=== PATIENT | male | born 1995 | race Caucasian/White ===

== ENCOUNTER 2021-09-27 18:34 | Emergency (ER) | payer SELFPAY ==
[2021-09-27 18:47] VITALS: BP 144/86; PULSE 114; O2SAT 96
[2021-09-27 18:56] VITALS: BP 124/76; PULSE 97; RESP 16; TEMP 36.6; O2SAT 96; BMI 23.5
--- NOTE | 2021-09-27 18:59 | ED_ITS ---
HPI - General Adult General Chief complaint: ETOH/Substance Use <HEATHER Mcpherson - Last Filed: 09/27/21 20:50> Stated complaint: N/V x 30 min S/P marijuana <HEATHER Mcpherson - Last Filed: 09/27/21 20:50> Time Seen by Provider: 09/27/21 18:53 <HEATHER Mcpherson - Last Filed: 09/27/21 20:50> Source: patient and EMS <HEATHER Mcpherson - Last Filed: 09/27/21 20:50> Mode of arrival: EMS <HEATHER Mcpherson - Last Filed: 09/27/21 20:50> Limitations: no limitations <HEATHER Mcpherson - Last Filed: 09/27/21 20:50> History of Present Illness HPI narrative: This is a 26-year-old male presenting to the emergency department via ambulance with nausea and vomiting status post smoking marijuana just prior to his arrival. Upon his arrival he is covered in vomit, and tells me it is because he smoked marijuana. Denies any pain at this time any medical complaints tells me he is still nauseous. He tells me he does not smoke daily however he decided to smoke today. He denies at doubles. Denies any other drugs, and tobacco. Denies visual, auditory and tactile hallucinations. Denies SI and HI. <HEATHER Mcpherson - Last Filed: 09/27/21 20:50> Onset (ago): hour(s) (1) <HEATHER Mcpherson - Last Filed: 09/27/21 20:50> Relieving factors: none <HEATHER Mcpherson - Last Filed: 09/27/21 20:50> Exacerbating factors: none <HEATHER Mcpherson - Last Filed: 09/27/21 20:50> Associated symptoms: nausea/vomiting <HEATHER Mcpherson - Last Filed: 09/27/21 20:50> Treatments prior to arrival: none <HEATHER Mcpherson Last Filed: 09/27/21 20:50> Related Data Home medications: Previous Rx's Medication Instructions Recorded ondansetron 4 mg disintegrating 4 mg PO ONCE PRN #10 tab 09/27/21 tablet <HEATHER Mcpherson - Last Filed: 09/27/21 20:50> Allergies/adverse reactions: Allergies Allergy/AdvReac Type Severity Reaction Status Date / Time Penicillins Allergy Unknown Verified 09/27/21 19:09 <HEATHER Mcpherson Last Filed: 09/27/21 20:50> Review of Systems 2 Review of Systems: Constitutional : No Fever, No Chills ENT/Mouth : No sore throat, No Rhinorrhea Eyes: No Eye Pain, No Swelling, No Redness Cardiovascular : No Chest Pain, No SOB Respiratory : No Cough, No Sputum Gastrointestinal : + Nausea, + Vomiting, No Diarrhea, No abdominal Pain Genitourinary : No Dysuria, No Hematuria Musculoskeletal : No joint pain, No Myalgias, No Joint Swelling Skin : No Skin Lesions, No rash Neuro : No Weakness, No Numbness Psych : No Anxiety, No Depression, No SI/HI/AH/VH Heme/Lymph: No Bruising, No Bleeding Endocrine : No Polyuria, No Polydipsia All other systems reviewed and are negative <HEATHER Mcpherson - Last Filed: 09/27/21 20:50> Yes all other systems are reviewed and are negative <HEATHER Mcpherson - Last Filed: 09/27/21 20:50> [facility] Past Medical History Attestation statement: The following information was validated with the patient. <HEATHER Mcpherson - Last Filed: 09/27/21 20:50> Source: old records reviewed and nursing notes reviewed <HEATHER Mcpherson - Last Filed: 09/27/21 20:50> Social History Social History: Social History Advance Directives: No <HEATHER Mcpherson Last Filed: 09/27/21 20:50> Physical Exam ED Vital Signs: Vital Signs - 24 hr 09/27/21 18:56 09/27/21 19:42 09/27/21 22:00 Temperature 98 F Pulse Rate 97 87 80 Respiratory Rate 16 16 Blood Pressure 124/76 131/73 121/74 Pulse Oximetry 96 96 98 BMI result Body Mass Index 23.5 VSS <HEATHER Mcpherson - Last Filed: 09/27/21 20:50> Vital Signs - 24 hr 09/27/21 18:56 09/27/21 19:42 09/27/21 22:00 Temperature 98 F Pulse Rate 97 87 80 Respiratory Rate 16 16 Blood Pressure 124/76 131/73 121/74 Pulse Oximetry 96 96 98 BMI result Body Mass Index 23.5 <HEATHER Galvan - Last Filed: 09/28/21 01:33> Appearance: Alert.? Oriented X3.? No acute distress.? Patient is sleeping, covered in vomit. Head: Normocephalic, atraumatic, no step-offs or deformities Eyes: Pupils equal, round and reactive to light.? ENT: Pharynx normal.? Neck: Normal inspection.? Neck supple.? CVS: Normal heart rate and rhythm.? Pulses normal.? Respiratory: No respiratory distress.? Breath sounds normal.? Abdomen: Soft and nontender.? Skin: Skin warm and dry.? Normal skin color.? Normal skin turgor.? Extremities: No lower extremity edema.? No calf ttp. 5/5 strength to bilateral upper and lower extremities Back: No midline tenderness, no C-spine tenderness, full range of motion, no CVA tenderness bilaterally Neuro: Oriented X 3.? No motor deficit.? No sensory deficit. CN 2-12 intact <HEATHER Mcpherson Last Filed: 09/27/21 20:50> Course Reevaluation(s) Reevaluation #1: Sign out given to Sorin CAPELLAN Pending MALIK. <HEATHER Mcpherson - Last Filed: 09/27/21 20:50> Time: 20:50 <HEATHER Mcpherson Last Filed: 09/27/21 20:50> Reevaluation #2: Patient now is alert oriented x3 and normal gait. 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 Patient admits to smoking marijuana. <HEATHER Galvan Last Filed: 09/28/21 01:33> Time: 23:56 <HEATHER Galvan Last Filed: 09/28/21 01:33> Medical Decision Making MDM Narrative Medical decision making narrative: 1901 26 yo m presents with n/v s/p smoking marijuana just prior to his arrival. Brought in by ambulance. Physical examination significant for male covered in vomit, alert and oriented x3 however drowsy and sleeping. Plan at this time is basic labs urine drug tox. <HEATHER Mcpherson Last Filed: 09/27/21 20:50> Medical Records Medical records reviewed: Yes I reviewed the patient's medical records. <HEATHER Mcpherson Last Filed: 09/27/21 20:50> Lab Data Lab results reviewed: Yes I reviewed the patient's lab results. <HEATHER Mcpherson Last Filed: 09/27/21 20:50> Labs: Lab Results 09/27/21 Range/Units 22:39 Urine Opiates Screen Not Detected (Not Detect) Urine Fentanyl Screen Not Detected (Not Detect) Ur Barbiturates Screen Not Detected (Not Detect) Ur Phencyclidine Scrn Not Detected (Not Detect) Ur Amphetamines Screen Not Detected (Not Detect) U Benzodiazepines Scrn Not Detected (Not Detect) Urine Cocaine Screen Not Detected (Not Detect) U Marijuana (THC) Screen POSITIVE H (Not Detect) <HEATHER Mcpherson Last Filed: 09/27/21 20:50> Lab Results 09/27/21 Range/Units 22:39 Urine Opiates Screen Not Detected (Not Detect) Urine Fentanyl Screen Not Detected (Not Detect) Ur Barbiturates Screen Not Detected (Not Detect) Ur Phencyclidine Scrn Not Detected (Not Detect) Ur Amphetamines Screen Not Detected (Not Detect) U Benzodiazepines Scrn Not Detected (Not Detect) Urine Cocaine Screen Not Detected (Not Detect) U Marijuana (THC) Screen POSITIVE H (Not Detect) <HEATHER Galvan - Last Filed: 09/28/21 01:33> Critical Care Time Critical Care Time Critical Care Time: No <HEATHER Mcpherson Last Filed: 09/27/21 20:50> Discharge Plan Discharge Clinical Impression: Nausea & vomiting, Marijuana abuse <HEATHER Mcpherson Last Filed: 09/27/21 20:50> Patient Disposition: Home, Self-Care <HEATHER Mcpherson - Last Filed: 09/27/21 20:50> Instructions: Acute Nausea and Vomiting (ED) <HEATHER Mcpherson - Last Filed: 09/27/21 20:50> Additional Instructions: Take your medications as prescribed. If you were prescribed antibiotics today, it is important that you take your medication to their entirety, do not skip any doses, do not finish them early. Follow-up with your primary care provider this week. Return to the emergency department with new or worsening symptoms. In case of emergency call 911 Zofran has been sent to your pharmacy as needed for nausea and vomiting. <HEATHER Mcpherson - Last Filed: 09/27/21 20:50> Prescriptions: New ondansetron 4 mg tablet,disintegrating 4 mg PO ONCE PRN (Reason: nausea and vomiting) Qty: 10 0RF <HEATHER Mcpherson - Last Filed: 09/27/21 20:50> Interventions: ED Discharge Assessment Last Done: 09/28/21 00:07 <HEATHER Mcpherson - Last Filed: 09/27/21 20:50> Discharge Date/Time: 09/28/21 00:07 <HEATHER Mcpherson - Last Filed: 09/27/21 20:50> Print Language: Cymro <HEATHER Mcpherson Last Filed: 09/27/21 20:50>
[2021-09-27] MEDS: Ondansetron ODT 4 MG TAB.RAPDIS TRANSLINGU (19:40)
[2021-09-27 19:42] VITALS: BP 131/73; PULSE 87; O2SAT 96
--- NOTE | 2021-09-27 19:42 | PC.NURSE ---
pt skin pale, pt drowsy, nauses and old vomit noted. vitals stable.
--- NOTE | 2021-09-27 21:14 | PC.NURSE ---
pt is more arrousable to verbal . skin pale vitals stable.
[2021-09-27 22:00] VITALS: BP 121/74; PULSE 80; RESP 16; O2SAT 98
[2021-09-27 22:57] LABS: Amphetamine Screen Urine Not Detected (Not Detect); Barbiturates, Urine Not Detected (Not Detect); Benzodiazepines Screen Urine Not Detected (Not Detect); Cannabinoid Screen Urine POSITIVE (Not Detect); Cocaine Screen Urine Not Detected (Not Detect); Fentanyl, urine Not Detected (Not Detect); Opiate Screen Urine Not Detected (Not Detect); Phencyclidine Screen Urine Not Detected (Not Detect)
--- NOTE | 2021-09-28 00:07 | PC.NURSE ---
pt is awake alert and oriented x3, pt denies n/v, pt ambulated to bathroom with a steady gait, urine collected. pt has a sober ride home. 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 pt talking in full sentences. pt had a sandwhich and gingerale and denies nausea and vomiting.
== END 2021-09-28 00:07 | disposition home or self-care (01) ==
PROVIDERS: Physician Assistant; Emergency Provider Internal Medicine
DX: R11.2 Nausea with vomiting, unspecified (principal); F12.10 Cannabis abuse, uncomplicated
CPT/HCPCS: 80307; 99283; 99284